=== PATIENT | female | born 1995 | race Caucasian/White ===

== ENCOUNTER 2017-06-20 05:46 | Outpatient (CLI) | payer OTHER ==
[~2017-06-20] VITALS: Ht 154.9 cm; Wt 73.5 kg
[~2017-06-20 05:46] MED LIST: CHLO473M4 MM; D ME PO; FLUO10CA29 PO; TRAM50TA2 PO
[2017-06-20] MEDS ORDERED: FLUO40CA PO (10:09)
[2017-06-20] MEDS ORDERED: PROP40TA5 PO (10:09)
[2017-06-20] MEDS ORDERED: FLUO20TA28 PO (10:09)
== END 2017-06-20 10:18 ==
LOC: PREOP 05:46
PROVIDERS: ATTEND Orthopaedic Surgery
DX: Z01.818 Encounter for other preprocedural examination (principal); S43.431A Superior glenoid labrum lesion of right shoulder, initial encounter

== ENCOUNTER 2017-06-22 09:16 | Day surgery (SDC) | payer OTHER ==
--- NOTE | 2017-06-17 06:21 | HISTORY AND PHYSICAL ---
DATE OF SERVICE: This will be for outpatient surgery on 06/22/2017. HISTORY OF PRESENT ILLNESS: The patient is a 21-year-old right hand dominant female with complaints of 3 years of right shoulder pain. She had an MRI in the past in which she was told she had a "small tear." She was treated with physical therapy without relief. She reports functional impairment in the shoulder specifically with lifting and with overhead activities. She reports snapping and popping in the shoulder. She reports that she is unable to throw due to pain and this has affected her activities of daily living. Due to failure to improve with conservative measures, the patient has elected to proceed with surgical intervention. REVIEW OF SYSTEMS: No chest pain, no shortness of breath and no dysuria. PAST MEDICAL HISTORY: Depression and anxiety. PAST SURGICAL HISTORY: None. FAMILY HISTORY: Noncontributory. PRIMARY CARE PROVIDER: Dr. Mesa. MEDICATIONS: Prozac and propranolol. ALLERGIES: No known drug allergies. SOCIAL HISTORY: The patient drinks alcohol socially and is a current every day smoker. PHYSICAL EXAMINATION: GENERAL: The patient is well developed, well nourished, in no acute distress. HEENT: Normocephalic, atraumatic. Pupils are equal, round and reactive to light. Oropharynx is clear. NECK: Supple, with no lymphadenopathy. LUNGS: Clear to auscultation bilaterally. HEART: Regular rate and rhythm. ABDOMEN: Soft, nontender, nondistended. EXTREMITIES: The right shoulder demonstrates symmetric forward elevation, external and internal rotation with a markedly positive Cedar's maneuver. Pain with apprehension, relieved with relocation. She has symmetric forward elevation, external and internal rotation. The crepitus with glenohumeral rotation. Negative Spurling's maneuver. Sensation is intact throughout the right upper extremity. No gross weakness in abduction, external or internal rotation. The pain is elicited with resistance. IMPRESSION: Right shoulder SLAP tear, unresponsive to conservative measures. PLAN: Right shoulder arthroscopic SLAP repair. The risks, benefits, options, complications and recovery were discussed at length with the patient. She understands and wishes to proceed. Job ID: [id number] DocumentID: [id number] Dictated Date: 06/14/2017 09:17:57 Superintendent Job Date: 06/14/2017 10:50:13 Dictated By: ANEL MORFIN MD
[~2017-06-22] VITALS: Ht 154.9 cm; Wt 73.5 kg
[~2017-06-22 09:16] MED LIST changes: +FLUO20TA28 PO; +FLUO40CA PO; +PROP40TA5 PO
--- OUTSIDE RECORDS SUMMARY | 2017-06-22 09:18 | XMS REPORT ---
Author LAURENCE Patton [facility] eClinicalWorks Address Unknown Phone Unavailable Care Team Providers Care Heel Emery Buffer Name Role Phone LAURENCE WINKLER Unavailable Allergies No Known Allergies Problems Problem Type Condition Code Onset Dates Condition Status Problem Wellness examination Z00.00 Active Problem Major depressive disorder, recurrent severe without psychotic features F33.2 Active Problem Rash R21 Active Problem Scabies B86 Active Problem Depression F32.9 Active Medications No Known Medications Results No Known Results Summary Purpose eClinicalWorks Submission
--- OUTSIDE RECORDS SUMMARY | 2017-06-22 09:19 | XMS REPORT | Continuity of Care Document ---
Demographics Preferred Language Unknown Marital Status Unknown Presybeterian Affiliation Unknown Race Unknown Ethnic Group Unknown Author Author [facility] Address Unknown Phone Unavailable Allergies Active Description Code Type Severity Reaction Onset Reported/Identified Relationship to Patient Clinical Status Yes No Known Drug Allergies [id number] Drug Allergy Unknown N/A 07/22/2010 Medications There is no data. Problems Date Dx Coded Attending Type Code Diagnosis Diagnosed By 12/18/2007 V03.89 MENINGOCOCCAL , OTHER SPECIFIED SINGLE BACTERIAL DISEASE 12/18/2007 V05.3 HEPATITIS VIRAL/ALL 12/18/2007 V05.8 GARDASIL, SHINGLES, OTHER SPECIFIED DISEASE 12/18/2007 V06.5 DT, TETANUS- DIPHTHERIA [Td] 12/18/2007 V20.2 WELL CHILD, ROUTINE 12/18/2007 V03.89 MENINGOCOCCAL , OTHER SPECIFIED SINGLE BACTERIAL DISEASE 12/18/2007 V05.3 HEPATITIS VIRAL/ALL 12/18/2007 V05.8 GARDASIL, SHINGLES, OTHER SPECIFIED DISEASE 12/18/2007 V06.5 DT, TETANUS- DIPHTHERIA [Td] 12/18/2007 V20.2 WELL CHILD, ROUTINE 12/16/2008 V70.4 EXAMINATION FOR MEDICOLEGAL REASONS 12/16/2008 V70.4 EXAMINATION FOR MEDICOLEGAL REASONS 07/22/2010 Ot 802.0 NASAL BONE FX -CLOSED 07/22/2010 Ot 959.09 INJURY OF FACE AND NECK 07/22/2010 Ot E000.8 OTHER EXTERNAL CAUSE STATUS 07/22/2010 Ot E007.3 ACTIVITIES INVOLVING BASEBALL 07/22/2010 Ot E849.0 ACCIDENT IN HOME 07/22/2010 Ot E917.0 STRUCK IN SPORTS 06/22/2011 Ot 079.99 VIRAL INFECTION NOS 06/22/2011 Ot 787.03 VOMITING ALONE 08/02/2011 Ot 845.00 SPRAIN OF ANKLE NOS 08/02/2011 Ot 959.7 LOWER LEG INJURY NOS 08/02/2011 Ot E000.8 OTHER EXTERNAL CAUSE STATUS 08/02/2011 Ot E029.9 OTHER ACTIVITY 08/02/2011 Ot E849.4 ACCID IN RECREATION AREA 08/02/2011 Ot E917.9 STRUCK BY OBJ/PERSON NEC 09/06/2012 V70.3 SPORTS PHYSICAL 11/02/2015 Ot 719.45 JOINT PAIN- PELVIS 11/02/2015 Ot 719.46 JOINT PAIN-L /LEG 11/02/2015 Ot E929.3 LATE EFF ACCIDENTAL FALL 11/02/2015 Ot 719.45 JOINT PAIN- PELVIS 11/02/2015 JONATAN GAY MD Ot 719.41 JOINT PAIN-SHLDER 11/02/2015 MARIVEL MANZANO Ot F17.210 NICOTINE DEPENDENCE, CIGARETTES, UNCOMPL 11/02/2015 MARIVEL MANZANO Ot S01.512A LACERATION WITHOUT FOREIGN BODY OF ORAL 11/02/2015 MARIVEL MANZANO Ot X58.XXXA EXPOSURE TO OTHER SPECIFIED FACTORS, INI 11/02/2015 MARIVEL MANZANO Ot Y99.8 OTHER EXTERNAL CAUSE STATUS Procedures There is no data. Results There is no data. Encounters ACCT No. Visit Date/Time Discharge Status Pt. Type Provider Facility Loc./Unit Complaint [id number] 12/16/2008 16:57:00 12/16/2008 23:59:59 CLS Outpatient [id number] 09/06/2012 08:35:00 Document Registration [id number] 11/02/2015 14:04:00 11/02/2015 16:26:00 DIS Emergency MARIVEL MANZANO [facility] ER [id number] 02/16/2013 15:37:00 02/16/2013 23:59:59 CLS Outpatient JONATAN GAY MD [facility] RAD [id number] 12/17/2011 11:26:00 Document Registration [id number] 08/02/2011 16:50:00 Document Registration [id number] 06/22/2011 08:39:00 Document Registration [id number] 12/08/2010 12:28:00 Document Registration [id number] 07/22/2010 10:38:00 Document Registration
--- OUTSIDE RECORDS SUMMARY | 2017-06-22 09:19 | XMS REPORT ---
Author LAURENCE Patton [facility] eClinicalWorks Address Unknown Phone Unavailable Care Team Providers Care News Library Director Name Role Phone LAURENCE WINKLER Unavailable Allergies No Known Allergies Problems Problem Type Condition Code Onset Dates Condition Status Problem Wellness examination Z00.00 Active Problem Major depressive disorder, recurrent severe without psychotic features F33.2 Active Problem Rash R21 Active Assessment Encounter for Depo-Provera contraception Z30.42 Active Problem Scabies B86 Active Problem Depression F32.9 Active Medications No Known Medications Procedures Procedure Coding System Code Date DEPO PROVERA (150 MG/ML) CPT-4 J1050 Feb 03, 2016 THER/PROPH/DIAG INJ, SC/IM CPT-4 08292 Feb 03, 2016 URINE TEST CPT-4 54724 Feb 03, 2016 Results Name Result Date Reference Range Unit Abnormality Flag TEST, URINE (IN HOUSE) ----RESULTS Negative [id number] ----Lot # [id number] ----Control + [id number] ----Exp date 20160203 Summary Purpose eClinicalWorks Submission
--- OUTSIDE RECORDS SUMMARY | 2017-06-22 09:19 | XMS REPORT ---
Demographics Address [address] [place] [address] Preferred Language Unknown Marital Status Unknown Mormon Affiliation Unknown Race White Ethnic Group Refused to Report Author LAURENCE Patton [facility] eClinicalWorks Address Unknown Phone Unavailable Care Team Providers Care Maintenance Man Name Role Phone LAURENCE WINKLER CP Unavailable Allergies, Adverse Reactions, Alerts Substance Reaction Event Type N.K.D.A. Info Not Available Non Drug Allergy Problems Problem Type Condition Code Onset Dates Condition Status Problem control V25.9 Active Problem Other general medical examination for administrative purposes V70.3 Active Problem Routine gynecological examination V7231 Active Assessment Routine gynecological examination V7.31 Active Assessment control V25.9 Active Medications Medication Code System Code Instructions Start Date End Date Status Dosage Ortho-Cyclen (28) [facility] [address]-32 0.25-35 MG-MCG Orally Once a day Jan 22, 2015 1 tablet Procedures Procedure Coding System Code Date SPECIMEN HANDLING CPT-4 19713 Mar 10, 2015 No Charge CPT-4 68196 Mar 10, 2015 URINE TEST CPT-4 20215 Mar 10, 2015 Preventive Care Est Pt. Age 18-39 CPT-4 41483 Mar 10, 2015 TRICHOMONAS VAGIN, DIR PROBE CPT-4 60005 Mar 10, 2015 THER/PROPH/DIAG INJ, SC/IM CPT-4 18555 Mar 10, 2015 DEPO PROVERA (150 MG/ML) CPT-4 J1050 Mar 10, 2015 Vital Signs Date/Time: Mar 10, 2015 Temperature 98.1 F Weight 153.4 lbs Height 61 in BMI 28.98 Index Blood Pressure Diastolic 76 mmHg Blood Pressure Systolic 112 mmHg Cardiac Monitoring Heart Rate 64 bpm BMIPercentile 92.14 % Wt Percentile 83.75 % Results Name Result Date Reference Range Unit Abnormality Flag TEST, URINE (IN HOUSE) ----RESULTS Negative [id number] Summary Purpose eClinicalWorks Submission
--- OUTSIDE RECORDS SUMMARY | 2017-06-22 09:19 | XMS REPORT ---
Demographics Address [address] [place] [address] Preferred Language Unknown Marital Status Unknown Uatsdin Affiliation Unknown Race White Ethnic Group Not or Author RIVERA Chan [facility] eClinicalWorks Address Unknown Phone Unavailable Care Team Providers Care Pig Machine Operator Helper Name Role Phone RIVERA CARRINGTON CP Unavailable Allergies No Known Allergies Problems Problem Type Condition Code Onset Dates Condition Status Problem Scabies B86 Active Problem Depression F32.9 Active Problem Major depressive disorder, recurrent severe without psychotic features F33.2 Active Problem Other general medical examination for administrative purposes V70.3 Active Assessment Encounter for Depo-Provera contraception Z30.42 Active Problem Routine gynecological examination V72.31 Active Problem control V25.9 Active Medications No Known Medications Procedures Procedure Coding System Code Date DEPO PROVERA (150 MG/ML) CPT-4 J1050 August 25, 2015 THER/PROPH/DIAG INJ, SC/IM CPT-4 66097 August 25, 2015 URINE TEST CPT-4 59756 August 25, 2015 Results Name Result Date Reference Range Unit Abnormality Flag TEST, URINE (IN HOUSE) ----RESULTS Negative [id number] ----Lot # [id number] ----Control + [id number] ----Exp date [id number] Summary Purpose eClinicalWorks Submission
--- OUTSIDE RECORDS SUMMARY | 2017-06-22 09:19 | XMS REPORT ---
Author LAURENCE Patton [facility] eClinicalWorks Address Unknown Phone Unavailable Care Team Providers Care Flight Data Technician Name Role Phone LAURENCE WINKLER CP Unavailable Allergies No Known Allergies Problems [...] Date DEPO PROVERA (150 MG/ML) CPT-4 J1050 November 12, 2015 THER/PROPH/DIAG INJ, SC/IM CPT-4 91175 November 12, 2015 URINE TEST CPT-4 05042 November 12, 2015 Results No Known Results Summary Purpose eClinicalWorks Submission
--- OUTSIDE RECORDS SUMMARY | 2017-06-22 09:19 | XMS REPORT ---
Author LAURENCE Patton [facility] eClinicalWorks Address Unknown Phone Unavailable Care Team Providers Care Pediatric Surgeon Name Role Phone LAURENCE WINKLER CP Unavailable Allergies, Adverse Reactions, Alerts Substance Reaction Event Type N.K.D.A. Info Not Available Non Drug Allergy Problems Problem Type Condition Code Onset Dates Condition Status Problem Wellness examination Z00.00 Active Problem Major depressive disorder, recurrent severe without psychotic features F33.2 Active Problem Rash R21 Active Assessment Depression F32.9 Active Problem Scabies B86 Active Problem Depression F32.9 Active Medications Medication Code System Code Instructions Start Date End Date [place] D[place] [address]-32 150 MG/[place] Intramuscular 1 [place] [address]-51 40 mg Orally Once a day September 04, 2015 1 capsule in the morning Procedures Procedure Coding System Code Date Office Visit, Est Pt., Level 4 CPT-4 52104 Feb 20, 2016 Vital Signs Date/Time: Feb 20, 2016 Cardiac Monitoring Heart Rate 72 bpm Weight 165.2 lbs Height 61 in BMI 31.21 Index Blood Pressure Diastolic 64 mmHg Blood Pressure Systolic 102 mmHg Results No Known Results Summary Purpose eClinicalWorks Submission
--- OUTSIDE RECORDS SUMMARY | 2017-06-22 09:19 | XMS REPORT ---
Demographics Address [address] [place] [address] Preferred Language Unknown Marital Status Unknown Catholic Affiliation Unknown Race White Ethnic Group Refused to Report Author LAURENCE Patton [facility] eClinicalWorks Address Unknown Phone Unavailable Care Team Providers Care Auto Rebuilder Name Role Phone LAURENCE WINKLER CP Unavailable Allergies, Adverse Reactions, Alerts Substance Reaction Event Type N.K.D.A. Info Not Available Non Drug Allergy Problems Problem Type Condition ICD-9 Code Onset Dates Condition Status Problem Other general medical examination for administrative purposes V70.3 Active Assessment control V25.9 Active Problem control V25.9 Active Medications Medication Code System Code Instructions Start Date End Date Status Dosage Ortho-Cyclen (28) [facility] [address]-03 0.25-35 MG-MCG Orally Once a day Jan 22, 2015 1 tablet Procedures Procedure Coding System Code Date Office Visit, Est Pt., Level 4 CPT-4 06934 Jan 22, 2015 URINE TEST CPT-4 32660 Jan 22, 2015 Vital Signs Date/Time: Jan 22, 2015 Temperature 98.4 F Weight 156.2 lbs Height 61 in BMI 29.51 Index Blood Pressure Diastolic 62 mmHg Blood Pressure Systolic 108 mmHg Cardiac Monitoring Heart Rate 70 bpm BMIPercentile 93.12 % Wt Percentile 85.95 % Results Name Result Date Reference Range Unit Abnormality Flag TEST, URINE (IN HOUSE) Summary Purpose eClinicalWorks Submission
--- OUTSIDE RECORDS SUMMARY | 2017-06-22 09:19 | XMS REPORT ---
Author Author LAURENCE WINKLER [facility] Address [address] [place] [address] Care Team Providers Care Promotional Marketing Agent Name Role Phone LAURENCE WINKLER Unavailable PROBLEMS Type Condition ICD9-CM Code PAO60-SE Code Onset Dates Condition Status SNOMED Code Problem Rash R21 Active 261890945 Problem Wellness examination Z00.00 Active 283210020 Problem Depression F32.9 Active 23971535 Problem Major depressive disorder, recurrent severe without psychotic features F33.2 Active 04921494 Problem Scabies B86 Active 817464765 ALLERGIES No Known Allergies SOCIAL HISTORY No smoking Hx information available PLAN OF CARE VITAL SIGNS MEDICATIONS No Known Medications RESULTS No Results PROCEDURES No Known procedures IMMUNIZATIONS No Known Immunizations
--- OUTSIDE RECORDS SUMMARY | 2017-06-22 09:19 | XMS REPORT ---
Author Author AUGUSTINA HENDRICKS Organization eClinicalWorks Address Unknown Phone Unavailable Care Team Providers Care Crystalizer Operator Name Role Phone AUGUSTINA HENDRICKS CP Unavailable Allergies, Adverse Reactions, Alerts Substance Reaction Event Type N.K.D.A. Info Not Available Non Drug Allergy Problems Problem Type Condition Code Onset Dates Condition Status Problem Wellness examination Z00.00 Active Problem Major depressive disorder, recurrent severe without psychotic features F33.2 Active Problem Rash R21 Active Assessment Right acute serous otitis media, recurrence not specified H65.01 Active Problem Scabies B86 Active Problem Depression F32.9 Active Medications Medication Code System Code Instructions Start Date End Date Status Dosage Amoxicillin [facility] [address]-46 500 MG Orally 3 times a day Dec 04, 2015 Dec 14, 2015 1 capsule Depo-Provera [facility] [address]-13 150 MG/ML Intramuscular 1 ml Floxin Otic NDC 0 0.3 % Otic Once a day Dec 04, 2015 Dec 11, 2015 10 drops into affected ear Prozac [facility] [address]-09 20 mg Orally Once a day September 04, 2015 1 capsule in the morning Procedures Procedure Coding System Code Date Office Visit, Est Pt., Level 3 CPT-4 04357 Dec 04, 2015 Vital Signs Date/Time: Dec 04, 2015 Cardiac Monitoring Heart Rate 78 bpm Weight 158.6 lbs Height 61 in Wt Percentile 86.14 % BMI 29.96 Index Blood Pressure Diastolic 68 mmHg Blood Pressure Systolic 102 mmHg BMIPercentile 93.01 % Results No Known Results Summary Purpose eClinicalWorks Submission
--- OUTSIDE RECORDS SUMMARY | 2017-06-22 09:19 | XMS REPORT ---
Author Author BETSEY MADRID [facility] Address [address] [place] [address] Care Team Providers Care Rubber And Pounder Name Role Phone BETSEY MADRID Unavailable PROBLEMS Type Condition ICD9-CM Code [id number] Code Onset Dates Condition Status SNOMED Code Problem Encounter for management and injection of depo-Provera Z30.42 Active 175564895 Problem Major depressive disorder, recurrent severe without psychotic features F33.2 Active 56810610 ALLERGIES No Known Allergies SOCIAL HISTORY Never Assessed PLAN OF CARE VITAL SIGNS Height 61 in 2016-09-22 Weight 170.6 lbs 2016-09-22 Temperature 97.4 degrees Fahrenheit 2016-09-22 Heart Rate 84 bpm 2016-09-22 Respiratory Rate 20 2016-09-22 BMI 32.23 kg/m2 2016-09-22 Blood pressure systolic 108 mmHg 2016-09-22 Blood pressure diastolic 68 mmHg 2016-09-22 MEDICATIONS Medication Instructions Dosage Frequency Start Date End Date Duration Status Prozac 20 mg Orally Once a day 1 capsule in the morning 24h Jun, 30 day(s) Active PredniSONE 20 mg Orally Once a day 2 tablets 24h August, August, 05 days Active Depo-Provera 150 MG/ML 1 ml Active Cromolyn Sodium 4 % Ophthalmic Four times a day 1 drop into affected eye 6h August, Active Prozac 40 mg Orally Once a day 1 capsule in the morning 24h August, 30 day(s) Active Prozac 40 mg Orally Once a day 1 capsule 24h Jun, 30 day(s) Active RESULTS Name Result Date Reference Range UA LONG DIP (IN HOUSE) 2016-09-22 Lot # [id number] Exp date 2017 04 30 Clarity clear Color yellow Odor none GLU negative KAMINI negative KET negative SG 1.020 BLO 2+ pH 5.5 Protein negative URO 0.2 NIT negative SEFERINO negative Lot # [id number] Exp date 2017 06 PROCEDURES Procedure Date Ordered Result Body Site URINALYSIS, AUTO, W/O SCOPE September 22, 2016 IMMUNIZATIONS No Known Immunizations MEDICAL (GENERAL) HISTORY Type Description Date Medical History depression
[2017-06-22] MEDS ORDERED: HYDROcodone/APAP 7.5 MG/325 MG (LORTAB, LORCET PLUS) TABLET PO PRN (09:30)
[2017-06-22] MEDS ORDERED: LACTATED RINGERS 1,000 ML IV PRN (09:41)
[2017-06-22] MEDS ORDERED: ceFAZolin INJECTION 1,000 MG in NS (IVPB) 50 ML IV ONE (09:45)
[2017-06-22 09:46] VITALS: BP 115/72
[2017-06-22] MEDS ORDERED: morphine PF (DURAMORPH) 10 MG/10 ML AMP ONE (09:49)
[2017-06-22] MEDS ORDERED: BUPIVACAINE 0.25% 30 ML (SENSORCAINE) VIAL ONE (09:49)
[2017-06-22] MEDS ORDERED: CATHETER FLUSH 10 ML SYR IV PRN (10:00)
[2017-06-22] MEDS ORDERED: fentaNYL INJECTION 100 MCG/2 ML AMP ONE (10:38)
[2017-06-22] MEDS ORDERED: MIDAZOLAM 2 MG/2 ML (VERSED) VIAL ONE ×2 (10:38)
[2017-06-22] MEDS ORDERED: ROCURONIUM 50 MG/5 ML (ZEMURON) VIAL IV ONE (10:40)
[2017-06-22] MEDS ORDERED: ONDANSETRON 4 MG/2 ML (SDV) Z0FRAN ONE (10:40)
[2017-06-22] MEDS ORDERED: LIDOCAINE PF 2% 5 ML (XYLOCAINE) VIAL ONE (10:40)
[2017-06-22] MEDS ORDERED: DEXAMETHASONE 10 MG/ML (DECADRON) 1 ML VIAL ONE (10:40)
[2017-06-22] MEDS ORDERED: proPOfol 200 MG/20 ML (DIPRIVAN) VIAL IV ONE (10:40)
--- NOTE | 2017-06-22 10:58 | Progress Note-Pre Operative ---
Pre-Operative Progress Note H&P Reviewed The H&P was reviewed, patient examined and no changes noted. Date Seen by Provider: Jun 22, 2017 Time Seen by Provider: 10:57 Date H&P Reviewed: Jun 22, 2017 Time H&P Reviewed: 10:57 Pre-Operative Diagnosis: right shoulder SLAP tear ANEL MORFIN MD Jun 22, 2017 10:58
--- NOTE | 2017-06-22 10:59 | Progress Note-Post Operative ---
Post-Operative Progess Note Surgeon (s)/Healthcare Specialist (s) Surgeon ANEL MORFIN MD Healthcare Specialist: Quan Estrada Pre-Operative Diagnosis right shoulder SLAP tear Post-Operative Diagnosis right shoulder SLAP tear Procedure & Operative Findings Date of Procedure 06/22/17 Procedure Performed/Findings right shoulder arthroscopic SLAP repair Anesthesia Type GETA Estimated Blood Loss Estimated blood loss (mL): minimal Specimens/Packing Specimens Removed none Packing: none ANEL MORFIN MD Jun 22, 2017 10:59
[2017-06-22] MEDS ORDERED: SEVOFLURANE (ULTANE) 15 ML INHAL SOLN ONE ×4 (11:42→11:45)
[2017-06-22] MEDS ORDERED: GLYCOPYRROLATE 0.2 MG/ML (ROBINUL) 2 ML VIAL ONE (11:42)
[2017-06-22] MEDS ORDERED: NEOSTIGMINE (BLOXIVERZ ) 1 MG/1ML 10 ML VIAL ONE (11:42)
[2017-06-22] MEDS ORDERED: HYDROmorphone (DILAUDID) 2 MG/ML VIAL IVP PRN (12:15)
[2017-06-22] MEDS ORDERED: PROMETHAZINE INJ 25 MG/ML (PHENERGAN) AMP IVP PRN (12:15)
[2017-06-22] MEDS ORDERED: fentaNYL INJECTION 100 MCG/2 ML AMP IVP PRN (12:15)
[2017-06-22] MEDS ORDERED: morphine INJ 10 MG/ML 1ML (SYR OR VIAL) IVP PRN (12:15)
[2017-06-22] MEDS ORDERED: ONDANSETRON 4 MG/2 ML (SDV) Z0FRAN IVP PRN (12:15)
[2017-06-22 12:55] VITALS: BP 123/66
[2017-06-22 13:25] VITALS: BP 126/66
[2017-06-22 13:52] VITALS: BP 126/66
--- NOTE | 2017-06-22 14:50 | Anesthesia-General Post-Op ---
General Patient Condition Mental Status/LOC: Same as Preop Cardiovascular: Satisfactory Nausea/Vomiting: Absent Respiratory: Satisfactory Pain: Controlled Complications: Absent Post Op Complications Complications None Follow Up Care/Instructions Patient Instructions None needed. Anesthesia/Patient Condition Patient Condition Patient is doing well, no complaints, stable vital signs, no apparent adverse anesthesia problems. No complications reported per nursing. LATISHA CHAMBERS CRNA Jun 22, 2017 14:50
--- NOTE | 2017-06-22 15:00 | OPERATIVE REPORT ---
DATE OF SERVICE: 06/22/2017 PREOPERATIVE DIAGNOSIS: Right shoulder SLAP tear. POSTOPERATIVE DIAGNOSIS: Right shoulder SLAP tear. PROCEDURES: Right shoulder arthroscopic SLAP repair. SURGEON: Johny Morfin MD. COMPLAINT MANAGER: MAXINE Michele, who assisted throughout the procedure and closed the incisions. ANESTHESIA: General endotracheal by Kendra Cintron CRNA. ESTIMATED BLOOD LOSS: Minimal. DRAINS: None. COMPLICATIONS: None. POSTOPERATIVE PLAN: Sling wear for 4 weeks with routine physical therapy. The patient was transferred to the recovery room awake and stable condition. STATEMENT OF MEDICAL NECESSITY: The patient is a 21-year-old right hand dominant female who has had a several year history of right shoulder pain worse with overhead activities and throwing activities. She had a markedly positive Mifflin's maneuver and pain with apprehension. She has undergone treatment with extensive physical therapy as well as activity modifications and she reported functional impairment despite this. Because of this, the patient elected to proceed with surgical intervention. Examination under anesthesia revealed forward elevation 180 degrees, external rotation of 100 degrees, internal rotation of 80 degrees, was symmetric. Arthroscopic findings demonstrated a detachment of the anterior labrum from the 1 to 2 o'clock positions. The remainder of the labrum was intact. There was no rotator cuff pathology noted. The humeral head and glenoid demonstrated no gross chondral abnormalities. The posterior biceps anchor was intact. PROCEDURE IN DETAIL: After risks and benefits of procedure were discussed and questions were answered, an informed consent was signed and placed on chart. The operative site was confirmed in the preoperative holding area initialed by the surgeon. The patient was then transported to the operating room and after adequate levels of general endotracheal anesthetic were obtained, a timeout was called confirming the operative site. The patient was then carefully placed in the left lateral decubitus position being careful to place an axillary roll and pad all bony prominences. The right shoulder and upper extremity prepped and draped in usual sterile fashion. 12 pounds of traction was applied with the arm in 30 degrees of abduction, 10 degrees of forward elevation. The shoulder joint was injected with 20 mL of fluid. Standard posterior portal was placed under direct visualization, anterior portal was created in the interval between the biceps, subscapularis, and glenoid. The glenoid neck was debrided at the detached labral site from the 1 to 2 o'clock positions. A single knotless Arthrex anchor was placed with an excellent repair obtained. This was carefully probed. No further tearing or instability noted. Shoulder joint was copiously irrigated. The portal sites closed with 4-0 nylon in simple interrupted fashion. The shoulder was injected with Duramorph. Port sites were infiltrated with plain Marcaine. A soft dressing and sling were applied. The patient was brought to recovery room in awake and stable condition. Job ID: [id number] DocumentID: [id number] Dictated Date: 06/22/2017 11:55:09 Electro Mechanical Assembler Date: 06/22/2017 14:13:10 Dictated By: JOHNY MORFIN MD
== END 2017-06-22 13:54 | disposition home or self-care (01) ==
LOC: SDC 09:16
PROVIDERS: ATTEND Orthopaedic Surgery
DX: S43.431A Superior glenoid labrum lesion of right shoulder, initial encounter (principal); Z11.2 Encounter for screening for other bacterial diseases; F32.9 Major depressive disorder, single episode, unspecified; F41.9 Anxiety disorder, unspecified; Z79.899 Other long term (current) drug therapy; F17.210 Nicotine dependence, cigarettes, uncomplicated
CPT/HCPCS: 84703; 87081

== ENCOUNTER 2017-08-25 15:45 | Outpatient (RCR) | payer OTHER | END 2017-08-25 15:55 | disposition home or self-care (01) | PROVIDERS: ATTEND Orthopaedic Surgery | DX: S43.431A Superior glenoid labrum lesion of right shoulder, initial encounter (principal) ==

== ENCOUNTER 2018-12-18 18:50 | Emergency (ER) | payer SELFPAY ==
[~2018-12-18] VITALS: Ht 154.9 cm; Wt 83.0 kg
--- NOTE | 2018-12-18 20:04 | ED Headache ---
General Chief Complaint: Head/Cervical Problems Stated Complaint: HEAD PAIN Nursing Triage Note: PT AMB TO TRIAGE WITH COMPLAINT OF HEAD INJURY AND PAIN. STATES SHE WAS HIT IN BACK OF HEAD BY DOOR AROUND 1 PM. STATES SYMTPOMS HAVE NOT IMPROVED. PT IS HAVING PAIN AND DIZZINESS/LIGHTHEADNESS, Nursing Sepsis Screen: No Definite Risk Source: patient, family Exam Limitations: no limitations History of Present Illness Date Seen by Provider: Dec 18, 2018 Time Seen by Provider: 20:02 Initial Comments To ER with reports of head injury and pain. Patient was up in the attic when a door fell and struck her in the back of the head at about 1 PM. Since then she's had a persistent headache dizziness nausea. No loss of consciousness no vomiting. Timing/Duration: 4-6 hours Severity/Quality: moderate Location: occipital Associated Symptoms: nausea/vomiting (nausea no vomiting) Allergies and Home Medications Allergies Coded Allergies: No Known Drug Allergies (Unverified , 07/22/10) Home Medications Fluoxetine HCl 20 Mg Tablet, 20 MG PO DAILY, (Reported) Fluoxetine HCl 40 Mg Capsule, 40 MG PO DAILY, (Reported) Propranolol HCl 40 Mg Tablet, 40 MG PO BID, (Reported) Patient Home Medication List Home Medication List Reviewed: Yes Review of Systems Review of Systems Constitutional: see HPI Eyes: No Symptoms Reported Ears, Nose, Mouth, Throat: no symptoms reported Respiratory: no symptoms reported Cardiovascular: no symptoms reported Genitourinary: see HPI Musculoskeletal: no symptoms reported Skin: no symptoms reported Psychiatric/Neurological: No Symptoms Reported Past Xtuwwvc-Yqrerd-Qmklae Hx Patient Social History Alcohol Use: Occasionally Uses Recreational Drug Use: No Smoking Status: Current Everyday Smoker Type Used: Cigarettes Recent Foreign Travel: No Contact w/Someone Who Travel: No Recent Infectious Disease Expo: No Recent Hopitalizations: No Immunizations Up To Date Tetanus Booster (TDap): Unknown PED Vaccines UTD: Yes Date of Influenza Vaccine: Jan 30, 2017 Seasonal Allergies Seasonal Allergies: Yes Past Medical History Surgeries: Yes Orthopedic Respiratory: No Cardiac: No Neurological: Yes Headaches /Migraines Gastrointestinal: No Musculoskeletal: Yes (right shoulder) Endocrine: No Cancer: No Psychosocial: Yes Anxiety, Depression Integumentary: No Blood Disorders: No Physical Exam Vital Signs Vital Signs - First Documented 12/18/18 19:08 Temp 98.8 Pulse 83 Resp 16 B/P (MAP) 133/82 (99) Pulse Ox 99 O2 Delivery Room Air Capillary Refill : Less Than 3 Seconds Height, Weight, BMI Height: 5'1.00" Weight: 183lbs. 0.0oz. 83.187994ot; 30.6 BMI Method:Stated General Appearance: WD/WN, no apparent distress HEENT: PERRL/EOMI, normal ENT inspection, TMs normal Respiratory: no respiratory distress, no accessory muscle use Extremities: normal range of motion, non-tender Psychiatric: alert, oriented x 3 Crainal Nerves: normal hearing, normal speech, PERRL Skin: normal color, warm/dry Progress/Results/Core Measures Results/Orders My Orders Orders - TIMOTHY TOPETE APRN Ct Head Wo (12/18/18 20:01) Vital Signs/I&O 12/18/18 19:08 Temp 98.8 Pulse 83 Resp 16 B/P (MAP) 133/82 (99) Pulse Ox 99 O2 Delivery Room Air Blood Pressure Mean: 99 Departure Impression Primary Impression: Concussion Qualified Codes: S06.0X9A - Concussion with loss of consciousness of unspecified duration, initial encounter Disposition: 01 HOME, SELF-CARE Condition: Stable Departure-Patient Inst. Decision time for Depature: 20:03 Referrals: NEL LEE MD (PCP/Family) Primary Care Physician Patient Instructions: Concussion, Adult (DC) Add. Discharge Instructions: 1. Return to ER for any concerns 2. Tylenol and Motrin for pain control All discharge instructions reviewed with patient and/or family. Voiced understanding. TIMOTHY TOPETE APRN Dec 18, 2018 20:04
--- NOTE | 2018-12-18 20:21 | Diagnostic Imaging Report ---
PROCEDURE: CT head without contrast. TECHNIQUE: Multiple contiguous axial images were obtained through the brain without the use of intravenous contrast. Auto Exposure Controls were utilized during the CT exam to meet ALARA standards for radiation dose reduction. INDICATION: Head injury COMPARISON: None FINDINGS: The ventricles are normal in size, shape, and position. There is no midline shift or mass effect. There is no hemorrhage or evidence of acute ischemia. No extra-axial fluid collection is seen. There is no skull fracture. Paranasal sinuses and mastoids are clear. IMPRESSION: Negative CT head. Dictated by: Dictated on workstation # [id number]
[2018-12-18 20:39] VITALS: BP 133/82
== END 2018-12-18 20:39 | disposition home or self-care (01) ==
LOC: EDUNIT# 18:50 → ER 18:52
DX: S06.0X0A Concussion without loss of consciousness, initial encounter (principal); G43.909 Migraine, unspecified, not intractable, without status migrainosus; F41.9 Anxiety disorder, unspecified; F32.9 Major depressive disorder, single episode, unspecified; F17.210 Nicotine dependence, cigarettes, uncomplicated; W20.8XXA Other cause of strike by thrown, projected or falling object, initial encounter
CPT/HCPCS: 70450

== ENCOUNTER 2021-06-06 04:06 | Emergency (ER) | payer BC ==
[~2021-06-06] VITALS: Ht 155 cm; Wt 90.9 kg
[~2021-06-06 04:06] MED LIST changes: -TRAM50TA2 PO; +TRM50T PO
[2021-06-06 04:23] VITALS: BP 116/76
--- NOTE | 2021-06-06 04:43 | ED EENT ---
History of Present Illness General Chief Complaint: Dental Problems/Pain Stated Complaint: UPPER & LOWER LEFT SIDE TOOTH PAIN Nursing Triage Note: Pt arrives ambulatory w/ c/o left sided dental pain. Pt states pain started about a month ago, and has an appointment on Tuesday with dentist, but pt has become unbearable over last 24 hrs. Source: patient, family Exam Limitations: no limitations History of Present Illness Date Seen by Provider: Jun 06, 2021 Time Seen by Provider: 04:28 Initial Comments Patient is a 25-year-old female who presents to the emergency department with a chief complaint of left-sided upper and lower dental pain. Patient states that she has had gradual onset of dental pain, started antibiotics, amoxicillin on May 29. She has been taking Relafen for pain and states its been doing pretty good to help control her symptoms. She worked a 12-hour shift today and left her pain medication at work and was unable to take it and had increasing pain this evening, has not been able to sleep. Has had left-sided facial pain pain in her left ear pain down the left neck. Also left-sided headache. Denies any green nasal discharge, visual loss, sore throat. No fevers. Has had intermittent diarrhea. Has been alternating Tylenol and ibuprofen as well as taking the Relafen. Patient is counseled on NSAID use and need to take a PPI or acid restorative care technician while taking the Relafen. Patient tells me she has a dental appointment on Tuesday of next week, 3 days from now. She has been using multiple hskt-urk-whtbimz topical pain relievers as well without much relief. Denies any other complaints of illness or injury. All other review of systems reviewed and negative except as stated. Timing/Duration: gradual Severity: severe Location: facial, dental Prearrival Treatment: prescription meds Associated Symptoms: facial pain/swelling, tooth pain, other (headache) Allergies and Home Medications Allergies Coded Allergies: No Known Drug Allergies (Unverified , 07/22/10) Patient Home Medication List Home Medication List Reviewed: Yes Fluoxetine HCl (Fluoxetine HCl) 20 Mg Tablet, 20 MG PO DAILY, (Reported) Entered as Reported by: CELESTE FREY on 06/20/17 1009 Fluoxetine HCl (Fluoxetine HCl) 40 Mg Capsule, 40 MG PO DAILY, (Reported) Entered as Reported by: CELESTE FREY on 06/20/17 1009 Propranolol HCl (Propranolol HCl) 40 Mg Tablet, 40 MG PO BID, (Reported) Entered as Reported by: CELESTE FREY on 06/20/17 1009 Review of Systems Review of Systems Constitutional: see HPI Eyes: No Symptoms Reported Ears: No Symptoms Reported Nose: no symptoms reported Mouth: pain, other (left maxillary pain and mandibualr pain) Throat: no symptoms reported Respiratory: no symptoms reported Cardiovascular: no symptoms reported Gastrointestinal: diarrhea (intermittent) Musculoskeletal: no symptoms reported Skin: no symptoms reported Neurological: Anxiety All Other Systems Reviewed Negative Unless Noted: Yes Past Swtpzmv-Icblcn-Rupqfc Hx Immunizations Up To Date Tetanus Booster (TDap): Unknown PED Vaccines UTD: Yes Seasonal Allergies Seasonal Allergies: Yes Past Medical History Surgeries: Yes Orthopedic Respiratory: No Cardiac: No Neurological: Yes Headaches /Migraines Gastrointestinal: No Musculoskeletal: Yes (right shoulder) Endocrine: No Cancer: No Psychosocial: Yes Anxiety, Depression Integumentary: No Blood Disorders: No Physical Exam Vital Signs Vital Signs - First Documented 06/06/21 04:23 Temp 36.7 Pulse 71 Resp 20 B/P (MAP) 116/76 (89) Pulse Ox 96 Height, Weight, BMI Height: 5'1.00" Weight: 183lbs. 0.0oz. 83.589469rd; 37.00 BMI Method:Stated General Appearance: WD/WN, mild distress Eyes: bilateral eye normal inspection, bilateral eye PERRL, bilateral eye EOMI Ears: left ear auricle normal, left ear canal normal, left ear TM normal Nose: normal inspection Mouth/Throat: pharynx normal, dental tenderness (left upper pre-molar. teeth are overall in good condition. no significant gingivitis, no appreciable abscess. some percussive tenderness left upper premolar. no loose or fractures or significantly carious teelth; patient has tenderness over the left maxillary sinus. no swelling) Neck: non-tender, full range of motion, supple Cardiovascular: regular rate, rhythm Respiratory: no respiratory distress, no accessory muscle use Neurologic/Psychiatric: no motor/sensory deficits, alert, normal mood/affect, oriented x 3 Skin: normal color, warm/dry Progress/Results/Core Measures Results/Orders My Orders Orders - NEELA BORRERO MD Ketorolac Injection (Toradol Injection) (06/06/21 04:45) Hydrocodone/Apap 7.5/325 Tab (Lortab 7. (06/06/21 04:45) Rx-Hydrocodone/Apap 5-325 Mg (Rx-Vicodin (06/06/21 04:45) Ondansetron Oral Dissolve Tab (Zofran (06/06/21 04:45) Vital Signs/I&O 06/06/21 04:23 Temp 36.7 Pulse 71 Resp 20 B/P (MAP) 116/76 (89) Pulse Ox 96 Blood Pressure Mean: 89 Departure Impression Primary Impression: Pain, dental Disposition: HOME, SELF-CARE Condition: Stable Departure-Patient Inst. Decision time for Depature: 04:41 Referrals: NEL LEE MD (PCP/Family) Primary Care Physician Patient Instructions: Dental Pain Add. Discharge Instructions: Use a good oral rinse daily - such as Listerine. Continue your antibiotics until they are gone. Take an over the counter acid restorative care technician such as Pepcid while taking the Nabumetone. Only take Tylenol every 6 hours. Use the Hydrocodone only as needed for severe pain - it can be addictive and cause constipation. Keep your appointment with your dentist on Tuesday of next week. Return to the ER for any worsening symptoms, fever over 101, rash/swelling or other emergent, concerning symptoms. Scripts Hydrocodone/Acetaminophen (Hydrocodone-Acetamin 5-325 mg) 1 Each Tablet 1 TAB PO Q6H PRN for PAIN-MODERATE (5-7), #10 TAB Prov: NEELA BORRERO MD 06/06/21 Copy Copies To 1: NEL LEE MD, KATHRYN M MD Jun 06, 2021 04:43
[2021-06-06] MEDS ORDERED: ACHD5005 PO (04:44)
[2021-06-06] MEDS ORDERED: HYDROcodone/APAP 7.5 MG/325 MG (LORTAB, LORCET PLUS) TABLET PO ONE (04:45)
[2021-06-06] MEDS ORDERED: KETOROLAC 30 MG/ML VIAL IM ONE (04:45)
[2021-06-06] MEDS ORDERED: ONDANSETRON 4 MG (ZOFRAN) ORAL DISSOLVE TAB PO ONE (04:45)
== END 2021-06-06 04:59 | disposition home or self-care (01) ==
LOC: EDUNIT# 04:06 → ER 04:10
DX: K08.89 Other specified disorders of teeth and supporting structures (principal); F41.9 Anxiety disorder, unspecified; F32.9 Major depressive disorder, single episode, unspecified; Z79.899 Other long term (current) drug therapy
CPT/HCPCS: 99285